=== PATIENT | female | born 1985 | race American Indian/Alaskan Native ===

== ENCOUNTER 2021-11-11 06:37 | Emergency (ER) | payer MEDICAID ==
[2021-11-11] MEDS ORDERED: ACETAMINOPHEN 500 MG TAB PO ONE (06:46)
[2021-11-11] MEDS ORDERED: ONDANSETRON 4 MG ODT TAB PO ONE (06:47)
[2021-11-11] MEDS ORDERED: SODIUM CHLORIDE 0.9% 1000 ML 1,000 ML IV ONE (09:47)
--- NOTE | 2021-11-11 10:10 | XRay Report ---
CHEST PA AND LATERAL VIEWS INDICATION: cough. COMPARISON: None. FINDINGS: Support devices: None. Heart: Within normal limits. Lungs/Pleura: No acute pulmonary or pleural findings. IMPRESSION: 1. No acute findings. Signer Name: Barrera Justice MD Signed: 11/11/2021 10:06 AM Workstation Name: [id number]
--- NOTE | 2021-11-11 10:19 | Emergency Department Report ---
- General Chief Complaint: Fever Stated Complaint: FLU SX Source: patient Mode of arrival: Ambulatory Limitations: No Limitations - History of Present Illness Initial Comments: 36-year-old female presents to the ED complaining of fever ,cough ,chills ,sore throat ,body ache x2 days. 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 Patient states that symptoms started 1 day after she substitute. Patient states that she is COVID vaccinated. Patient is alert and oriented x3. No acute distress noted. No ill appearance noted. Improves With: OTC cold medicine Context: sick contacts Associated Symptoms: fever, chills, cough - Related Data Previous Rx's Medication Instructions Recorded Last Taken Type Azithromycin [Zithromax TAB] 250 mg PO QDAY 5 Days #6 tablet 11/11/21 Unknown Rx predniSONE [Deltasone] 50 mg PO QDAY 5 Days #5 tab 11/11/21 Unknown Rx Allergies Allergy/AdvReac Type Severity Reaction Status Date / Time naproxen [From Naprosyn] Allergy Unknown Verified 11/11/21 06:45 ED Review of Systems ROS: Stated complaint: FLU SX Other details as noted in HPI Constitutional: denies: chills, fever Eyes: denies: eye pain, eye discharge, vision change ENT: denies: ear pain, throat pain Respiratory: denies: cough, shortness of breath, wheezing Cardiovascular: denies: chest pain, palpitations Endocrine: no symptoms reported Gastrointestinal: vomiting. denies: abdominal pain, nausea, diarrhea Genitourinary: denies: urgency, dysuria, discharge Musculoskeletal: denies: back pain, joint swelling, arthralgia Skin: denies: rash, lesions Neurological: denies: headache, weakness, paresthesias Psychiatric: denies: anxiety, depression Hematological/Lymphatic: denies: easy bleeding, easy bruising ED Past Medical Hx - Medications Home Medications: Home Medications Medication Instructions Recorded Confirmed Last Taken Type Azithromycin [Zithromax TAB] 250 mg PO QDAY 5 Days #6 tablet 11/11/21 Unknown Rx predniSONE [Deltasone] 50 mg PO QDAY 5 Days #5 tab 11/11/21 Unknown Rx ED Physical Exam - General Limitations: No Limitations General appearance: alert, in no apparent distress - Head Head exam: Present: atraumatic, normocephalic - Eye Eye exam: Present: normal appearance - ENT ENT exam: Present: mucous membranes moist - Neck Neck exam: Present: normal inspection - Respiratory Respiratory exam: Present: normal lung sounds bilaterally. Absent: respiratory distress - Cardiovascular Cardiovascular Exam: Present: regular rate, normal rhythm. Absent: systolic murmur, diastolic murmur, rubs, gallop - GI/Abdominal GI/Abdominal exam: Present: soft, normal bowel sounds - Extremities Exam Extremities exam: Present: normal inspection - Back Exam Back exam: Present: normal inspection - Neurological Exam Neurological exam: Present: alert, oriented X3 - Psychiatric Psychiatric exam: Present: normal affect, normal mood - Skin Skin exam: Present: warm, dry, intact, normal color. Absent: rash ED Course Vital Signs 11/11/21 11/11/21 06:40 08:57 Temperature 102.6 F H 98.9 F Pulse Rate 112 H Respiratory 18 Rate Blood Pressure 108/71 O2 Sat by Pulse 97 Oximetry ED Medical Decision Making - Medical Decision Making 42-year-old male presents to the ED complaining of left shoulder pain. Patient states that he works for [employer]. And as he was getting out of his truck he accidentally hyperextended his and when he did that he felt as though he pulled a muscle in his shoulder. Patient denies any numbness and tingling to the left shoulder area. Patient able to move all extremity without any difficulty. No obvious deformity noted. No distracting injury noted. Patient is alert and oriented x3. No ill appearance noted. Physical examination is unremarkable. Chest x-ray shows no abnormality Normal saline 1 L given IV Rechecked the patient is resting quietly quietly and comfortable and feeling better. I discussed the results of diagnostic study, my clinical impression and the plan for further treatment with the patient. Patient agrees with plan and discharge at this present time. All question addressed. I have given the patient instruction regarding a diagnosis ,expectation ,follow- up and return precaution. I explained to the patient that emergent condition may arise and to return to the ED for new worsen and any new persisting condition. I have explained the importance of following up with the primary care physician or referral physician listed below has instructed. The patient verbalized understanding of discharge instruction. Critical care attestation.: If time is entered above; I have spent that time in minutes in the direct care of this critically ill patient, excluding procedure time. ED Disposition Clinical Impression: Exposure to COVID-19 virus Disposition: HOME / SELF CARE / HOMELESS Is pt being admited?: No Does the pt Need Aspirin: No Condition: Stable Instructions: COVID-19 Frequently Asked Questions, Prevent the Spread of COVID- 19 if You Are Sick - [facility] [place] 2] Additional Instructions: Take medication as prescribed Return to the ED for any worsening symptoms Your symptoms appear most consistent with a nonspecific viral syndrome. However, given this current pandemic, COVID-19 is in the differential of possibilities. Despite your previous negative COVID-19 test, I do recommend repeat outpatient Covid 19 testing. In the meantime, isolate/quarantine yourself and stay away from anyone who is elderly, immunocompromised or chronically ill. You can use ibuprofen every 6-8 hours and Tylenol every 4-8 hours, using the dosing on the back of the bottle, as needed for any fever or body aches. Return to the emergency department with any worsening of your symptoms, development of chest pain or shortness of breath, or with any acute distress. Prescriptions: predniSONE [Deltasone] 50 mg PO QDAY 5 Days #5 tab Azithromycin [Zithromax TAB] 250 mg PO QDAY 5 Days #6 tablet Referrals: ANNITA ROLDAN MD [Referring] - 3-5 Days Forms: Work/School Release Form(ED) Time of Disposition: 10:46
[2021-11-11 11:04] VITALS: BP 128/65
== END 2021-11-11 11:05 | disposition home or self-care (01) ==
LOC: ED 06:37
DX: J02.9 Acute pharyngitis, unspecified (principal); R50.9 Fever, unspecified; R05.9 Cough, unspecified; Z20.822 Contact with and (suspected) exposure to COVID-19
CPT/HCPCS: 71046; 96360; 99283; J7030; J3490; Q0162